=== PATIENT | female | born 1940 | race Caucasian/White ===

== ENCOUNTER 2019-03-22 00:05 | Inpatient (IN) | payer MEDICARE, OTHER ==
[2019-03-21 15:56] LABS: INR 1.06
--- NOTE | 2019-03-21 17:55 | HISTORY AND PHYSICAL ---
DATE OF ADMISSION: March 22, 2019 IDENTIFICATION/CHIEF COMPLAINT Margie is a 78-year old woman with a chief complaint of progressive left shoulder pain. HISTORY OF PRESENT ILLNESS Patient has a longstanding history of arthritis which has been refractory to conservative care. Surgery is indicated to relieve symptoms after failure of all nonoperative measures. PAST MEDICAL HISTORY Hypertension, controlled on medication. CURRENT MEDICATIONS 1. Omeprazole 20 mg p.o. q.d. 2. Lisinopril 40 mg p.o. q.d. 3. Hydrochlorothiazide 12.5 mg p.o. q.d. 4. Atorvastatin 10 mg p.o. q.d. 5. Metoprolol 200 mg p.o. q.d. 6. Gabapentin 800 mg p.o. t.i.d. 7. Lyrica 75 mg p.o. q.h.s. 8. Levothyroxine 125 mcg p.o. q.d. 9. Alendronate 20 mg p.o. q.d. PAST SURGICAL HISTORY 1. 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 2. Cholecystectomy. 3. Hysterectomy. 4. Appendectomy. FAMILY HISTORY Noncontributory. SOCIAL HISTORY Negative for tobacco and alcohol. REVIEW OF SYSTEMS Negative. PHYSICAL EXAMINATION GENERAL: Healthy female. HEENT: Normocephalic, atraumatic. NECK: Supple. LUNGS: Clear. HEART: Regular. ABDOMEN: Soft. ORTHOPEDIC EXAM There is tenderness at the anterior and posterior joint line of the left shoulder. She has severe crepitus and catching within a comfortable range. Cuff strength is normal. Radiographs demonstrates end-stage glenohumeral osteoarthritis. MRI demonstrates slightly irregular cuff but with no full thickness tearing and end-stage arthritic changes. ASSESSMENT Left shoulder end-stage glenohumeral osteoarthritis, progressively painful and debilitating, refractory to conservative care. PLAN Proceed with shoulder arthroplasty per patient request, most likely an anatomic total shoulder replacement but possibly reverse based on intraoperative findings. Concomitant long-head biceps tenodesis will be performed in the same setting. Nature of the procedure, risks and benefits and alternatives were reviewed. The risks of the procedure include but are not limited to , major medical or anesthetic complications, infection, neurovascular injury, blood transfusion, stiffness, scarring, fracture, tendon rupture, instability, implant loosening, migration or failure, persistent or recurrent pain, need for additional surgery and other unforeseen. She understands and wishes to proceed. Signed permit placed in the chart. No guarantees given or implied. LISANDRO
[2019-03-22] VITALS (10 sets, daily range): BP systolic 131–152; BP diastolic 72–115
[~2019-03-22] VITALS: Ht 167.6 cm; Wt 88.9 kg
[~2019-03-22 00:05] MED LIST: ALEN70TA43 PO; ATOR10TA24 PO; GABA-549 PO; HYDR-2966 PO; LEVO-3 PO; LISI-374 PO; METO200T12 PO; NAPR220C12 PO; OMEP-125 PO; PREG75CA60 PO; TURM500C4 PO
[2019-03-22] MEDS ORDERED: LIDOCAINE/SOD BICARB 8.4% SYR ID ONE (07:30)
[2019-03-22] MEDS ORDERED: NORMOSOL R SOLN(*) 1000 ML BAG 1,000 ML IV PRN ×2 (07:30→14:55)
[2019-03-22] MEDS ORDERED: ACETAMINOPHEN 500 MG TAB PO ONE (08:00)
[2019-03-22] MEDS ORDERED: PREGABALIN 75 MG CAPSULE PO ONE (08:20)
[2019-03-22] MEDS ORDERED: CELECOXIB 200 MG CAP PO ONE (08:30)
[2019-03-22] MEDS ORDERED: TRANEXAMIC AC 1000 MG/10ML SDV 1,000 MG in DEXTROSE 5% 50 ML BAG 50 ML IV ONE (08:45)
[2019-03-22] MEDS ORDERED: ceFAZolin(*) 2GM/D5W 50ML 50 ML IVPB ONE (08:45)
[2019-03-22] MEDS ORDERED: MIDAZOLAM 2 MG/2 ML VIAL IVP PRN (08:45)
[2019-03-22] MEDS ORDERED: ROPIVACAINE/EPI/CLONIDINE/KET 50 ML SYRINGE INJ ONE (08:45)
[2019-03-22] MEDS ORDERED: THROMBIN TOP SOLN 5000INTLU VL ONE (10:43)
[2019-03-22] MEDS ORDERED: HYDROGEN PEROXID 3% 473 ML BTL TP ONE (10:43)
[2019-03-22] MEDS ORDERED: VANCOMYCIN 1 GM VIAL ONE (10:45)
[2019-03-22] MEDS ORDERED: ROPIVACAINE 0.5% 20 ML VIAL ONE (13:46)
[2019-03-22] MEDS ORDERED: GLYCOPYRROLATE 0.2MG/ML 1 ML INJ ONE (13:46)
[2019-03-22] MEDS ORDERED: ONDANSETRON 4 MG/2 ML VIAL ONE ×2 (13:46→14:18)
[2019-03-22] MEDS ORDERED: PROPOFOL EMUL(*) 10MG/ML 20 ML 20 ML ONE (13:46)
[2019-03-22] MEDS ORDERED: DEXAMETHASONE SOD PHOS 10MG/ML ONE (13:46)
[2019-03-22] MEDS ORDERED: ROCURONIUM BROM 10 MG/ML 10 ML ONE (13:46)
[2019-03-22] MEDS ORDERED: PHENYLEPHRINE 10 MG/1 ML VIAL ONE (13:46)
[2019-03-22] MEDS ORDERED: PROMETHAZINE 25 MG/ML 1 ML AMP ONE (14:37)
--- NOTE | 2019-03-22 14:54 | RADIOLOGY IMAGING REPORT ---
FACILITY: [facility] [place] PATIENT NAME: Margie Muller : 1940 MR: [id number] V: [id number] EXAM DATE: ORDERING PHYSICIAN: LISA BRUCE TECHNOLOGIST: Location: [facility] [place] Patient: Margie Muller : 1940 Visit/Account:[id number] Date of Sevice: 03/22/2019 3 views left shoulder Indication: Status post left total shoulder arthroplasty. Comparison: February 16, 2019. Findings: Postoperative changes noted from left shoulder arthroplasty. Shoulder appears to be an articulating alignment. No visualized hardware complication. There are overlying skin vickie. Mild subcutaneou s emphysema. At least mild/moderate degenerative changes within the left acromioclavicular joint. IMPRESSION: Unremarkable postoperative appearance of left shoulder arthroplasty. Report Dictated By: Yeison Yancey MD at 03/22/2019 2:43 PM Report E-Signed By: Yeison Yancey MD at 03/22/2019 2:50 PM WSN:BRYSON
[2019-03-22] MEDS ORDERED: diphenhydrAMINE 25 MG CAP PO PRN (14:55)
[2019-03-22] MEDS ORDERED: ZOLPIDEM TARTRATE 5 MG TAB PO PRN (14:55)
[2019-03-22] MEDS ORDERED: MAGNESIUM HYDROXIDE* 30ML UDCP PO PRN (14:55)
[2019-03-22] MEDS ORDERED: PROMETHAZINE 25 MG/ML 1 ML AMP IVP PRN (14:55)
[2019-03-22] MEDS ORDERED: BENZOCAINE/MENTHOL 1 EACH LOZG PO PRN (14:55)
[2019-03-22] MEDS ORDERED: APAP/HYDROCODONE 325/7.5 TAB PO PRN (14:55)
[2019-03-22] MEDS ORDERED: ACETAMINOPHEN 325 MG TAB PO PRN (14:55)
[2019-03-22] MEDS ORDERED: DIAZEPAM 5 MG TAB PO PRN (14:55)
[2019-03-22] MEDS ORDERED: BISACODYL 10 MG SUPP PR PRN (14:55)
[2019-03-22] MEDS ORDERED: FLUSH 10 ML SYR IVP PRN (14:55)
[2019-03-22] MEDS ORDERED: diphenhydrAMINE 50 MG/ML VIAL IVP PRN (14:55)
--- NOTE | 2019-03-22 16:07 | OPERATIVE REPORT 1 ---
EVENT DATE: March 22, 2019 SURGEON: Bar Feldman MD ANESTHESIOLOGIST: Ernst Cai MD ANESTHESIA: General plus scalene. COMBINATION WINDOW INSTALLER: LIZZETTE Pinto PREOPERATIVE DIAGNOSES 1. Left shoulder end-stage glenohumeral osteoarthritis. 2. Long head biceps disease. POSTOPERATIVE DIAGNOSES 1. Left shoulder end-stage glenohumeral osteoarthritis. 2. Long head biceps disease. PROCEDURES PERFORMED 1. Left total shoulder arthroplasty. 2. Tenodesis of the long head of the biceps. ESTIMATED BLOOD LOSS 200 mL DRAINS None. SPECIMENS None. COMPLICATIONS None apparent. IMPLANTS USED [email or web address] system with a size 10 stem, 10 proximal body, a 44 x 15 standard concentric humeral head, and a 44 mm [place] Peg Glenoid. INDICATIONS Margie is a 78-year-old woman with intractable pain related to end-stage shoulder arthritis. Surgery is indicated to relieve symptoms after failure of nonoperative measures. DESCRIPTION OF PROCEDURE Patient is taken to the operating room and placed supine on the operating table. Scalene block is administered by the anesthesiologist. General anesthesia is induced. Antibiotics are administered IV. Patient is positioned in the beach chair position with the neck secured in a neutral position. All bony prominences and superficial nerves are well padded. Left shoulder girdle and upper extremity are prepped and draped free in the usual sterile fashion for shoulder arthroplasty. A curvilinear incision is made over the deltopectoral interval, carried down through the skin. Dissection is carried down to the cephalic vein, which is taken laterally with the deltoid. Deltopectoral interval is developed bluntly. The clavipectoral fascia is released along the lateral aspect of the conjoined tendon. About a centimeter of the upper pectoralis tendon is released, leaving a small cuff of tissue. The underlying biceps groove is identified. This is markedly dilated with synovial fluid. This is opened, and the biceps is identified and tenodesed anatomically with two [id number] #2 Ethibond to the stump of the pectoralis major tendon. This is then clipped proximally and traced up into the joint to the rotator interval and excised. Tenosynovial debris in the groove is removed. Next, the anterior humeral circumflex vessels are identified and ligated. Next, an incision is made through the subscapularis and the capsule about 1.5 cm medial to the biceps groove. The subscapularis is tagged for later reattachment with #2 Ethibond sutures. The capsule is then released off the inferior humeral head subperiosteally as the arm is progressively extended and externally rotated. Prior to this maneuver, the axillary neurovascular bundle is identified with a gloved finger, and a blunt Hohmann is used to protect the neurovascular bundle. Osteophytes around the rim of the humeral head are resected with a large rongeur. A Darrach retractor is placed to protect the glenoid, and a Crego retractor is used to protect the rotator cuff. Neck cut is marked starting at the superolateral aspect of the humeral head of the junction with the cuff at a 135-degree angle, and an oscillating saw was used to create the osteotomy aiming for the bare area, reproducing the patient's anatomic version. The head is extracted and taken to the back table and saved for later bone grafting. Next, the humerus is levered posteriorly with a posterior retractor. It is placed on the back lip of the glenoid, and the glenoid is exposed en face. A 360-degree subscapularis release is performed, taking care not to damage the axillary neurovascular bundle. Anterior retractor is placed on the glenoid neck anteriorly. The labrum is excised circumferentially. The cuff is found to be in good condition posterior superior with no need for reverse arthroplasty. We will proceed with anatomic shoulder replacement. After direct exposure of the glenoid, sizing disk reveals that a 44 is optimal. The center point is marked. A guide pin is then placed perpendicular to the surface, perhaps trending slightly toward slightly correcting a bit of retroversion, but neutral in the superior inferior direction. This is driven to and through the cortex of the center line of the glenoid. Reamer is introduced next, and reaming is performed to achieve concentric backing for the 44. Reamings are saved for later grafting. The [place] Peg Glenoid central hole is then drilled, followed by the peripheral holes. Trial has nice gttj-am-jflm fit. Surfaces are copiously lavaged. Meticulous hemostasis is assured. Thrombin and Gelfoam are packed in the peripheral holes. A mix of DePuy fast-acting cement is made, and it is pressurized into the peripheral holes. The [place] Peg Glenoid is grafted along its flute with the bone reamings. This is then press-fit into location and held until it is satisfactorily hardened. The humerus then extended and externally rotated, and a starting awl started at the most superior and lateral aspect of the osteotomy. It was used to find the canal. Tapered reaming is performed in 2 mm increments up to 10 where a nice endosteal contact is obtained. The Brosteotome is then introduced using the bar to align the version with the cut to reproduce the patient's anatomic version. The trial sits nicely. Trial reduction is performed off the trial stem with various head and neck combinations, and ideal soft tissue tension is achievable. The 44 x 15 seems ideal with 50% posterior luxation of the head to the rim with good springback. Scarecrow test has 75 degrees with the arm abducted at 90. The subscapularis can be reapproximated out to 60 degrees of external rotation, and one-third inferior luxation is notable pulling axial traction distally on the glenoid component. The trial components are then removed. Pain cocktail is infiltrated throughout the wound. The wound is copiously lavaged. The actual humeral stem is then press-fit into place using calcar grafting technique to enhance bone density around the medial aspect of the stem. Solid fixation is achieved. The Sheikh taper is lavaged and dried, and the actual head is impacted into position. Joint is reduced. Again after confirming satisfactory condition of the axillary neurovascular bundle, the subscapularis is reapproximated anatomically with the previously placed sutures with a free needle as well as additional jabtcz-ja-whqbi #2 Ethibond suture. The rotator interval is loosely closed at the lateral aspect using qrskwt-vy-wviro #2 Ethibond suture with the arm held in external rotation. Final stability and range of motion are assessed. Meticulous hemostasis is assured. Wound is copiously lavaged. Remainder of the pain cocktail is infiltrated throughout. The deltopectoral interval folds back together. Derm is closed with 3-0 Vicryl, skin with surgical vickie. Xeroform is applied for a dry, sterile dressing and an UltraSling. Patient is awakened from anesthesia and taken to the recovery room in stable condition having tolerated the procedure well. PLAN Plan is for standard TSA rehab protocol. [facility]
--- NOTE | 2019-03-22 16:12 | Hospitalist Progress Note ---
Subjective Progress Notes Subjective Patient seen post-op. Reviewed PMHx (HTN, hypothyroidism, GERD, hyperlipidemia) and medications. At present she reports doing fairly well. She denies any CP/SOB/nausea. Physical Exam Vital Signs Date Time Temp Pulse Resp B/P (MAP) Pulse Ox O2 Delivery O2 Flow Rate FiO2 03/22/19 15:30 97.1 63 12 143/81 (101) 97 Nasal Cannula 2.0 General Appearance: Alert, Awake Cardiovascular: Regular Rate and Rhythm Respiratory: Clear to Auscultation (anetriorly) Extremities: Other (LUE in immobilizer/dressed) Assessment and Plan Problems: (1) HTN (hypertension) Status: Chronic Assessment & Plan: Will monitor BPs and resume her lisinopril, metoprolol, HCTZ with parameters. (2) Hypothyroidism Status: Chronic Assessment & Plan: Continue replacement with L-thyroxine 125mcg daily. (3) Hyperlipidemia Status: Chronic Assessment & Plan: She has been managed with atorvastatin 10mg daily. (4) GERD (gastroesophageal reflux disease) Status: Chronic Assessment & Plan: She has been managed with omeprazole. Will continue PPI therapy (Protonix while here). JACKLYN ST MD March 22, 2019 16:12
[2019-03-22] MEDS: IBUPROFEN 800 MG TAB PO SCH (17:19)
[2019-03-22] MEDS ORDERED: NS(*) 0.9% 250 ML BAG 250 ML ONE (19:48)
[2019-03-22] MEDS: ceFAZolin(*) 1 GM VIAL 1 GM in NS(*) 0.9% 100 ML MINI-BAG 100 ML IVPB SCH (20:00)
[2019-03-22] MEDS: PREGABALIN 75 MG CAPSULE PO SCH (20:01)
[2019-03-22] MEDS: ATORVASTATIN 10 MG TAB PO SCH (20:01)
[2019-03-22] MEDS: METOPROLOL SUCC XL 50 MG TABCR 50 MG TAB.ER.24H PO SCH (20:01)
[2019-03-22] MEDS: GABAPENTIN 300 MG CAP PO SCH (20:02)
[2019-03-23] MEDS: IBUPROFEN 800 MG TAB PO SCH ×2 (01:00→09:43)
[2019-03-23] MEDS: ceFAZolin(*) 1 GM VIAL 1 GM in NS(*) 0.9% 100 ML MINI-BAG 100 ML IVPB SCH ×2 (03:31→09:43)
[2019-03-23] MEDS: LEVOTHYROXINE SOD 0.125 MG TAB PO SCH (05:27)
[2019-03-23 08:02] VITALS: BP 137/70
[2019-03-23] MEDS ORDERED: HYDR-654 PO (08:18)
[2019-03-23] MEDS: HYDROCHLOROTHIAZIDE 25 MG TAB PO SCH (09:00)
[2019-03-23] MEDS: LISINOPRIL 20 MG TAB PO SCH (09:00)
[2019-03-23] MEDS: ASPIRIN 325 MG TAB PO SCH (09:43)
[2019-03-23] MEDS: PANTOPRAZOLE SOD 40 MG TABEC PO SCH (09:43)
--- NOTE | 2019-03-23 10:23 | Hospitalist Progress Note ---
Subjective Progress Notes Subjective She was admitted s/p shoulder replacement. She has no complaints this morning. She would like to go home today. Patient Complains of: Cardiovascular: No: Chest Pain Respiratory: No: Shortness of Breath Physical Exam Vital Signs Date Time Temp Pulse Resp B/P (MAP) Pulse Ox O2 Delivery O2 Flow Rate FiO2 03/23/19 08:02 98.3 72 137/70 (92) 98 03/22/19 20:00 Nasal Cannula 2.0 03/22/19 15:30 12 Intake and Output 03/23/19 01:00 Intake Total 3086 ml Balance 3086 ml Intake Oral 586 ml IV Total 2350 ml Other 150 ml # Voids 3 General Appearance: Alert, Awake, No Acute Distress, Afebrile Neuro: No Gross deficits Cardiovascular: Regular Rate and Rhythm Respiratory: No Respiratory Distress, Clear to Auscultation GI: Soft and Non-Tender Psych: Alert & Oriented X3, Appropriate Mood & Affect Assessment and Plan Problems: (1) HTN (hypertension) Status: Chronic Assessment & Plan: Will monitor BPs and resume her lisinopril, metoprolol, HCTZ with parameters. (2) Hypothyroidism Status: Chronic Assessment & Plan: Continue replacement with L-thyroxine 125mcg daily. (3) Hyperlipidemia Status: Chronic Assessment & Plan: She has been managed with atorvastatin 10mg daily. (4) GERD (gastroesophageal reflux disease) Status: Chronic Assessment & Plan: She has been managed with omeprazole. Will continue PPI therapy (Protonix while here). Exam Sepsis Risk: No Definite Risk Problem Qualifiers (1) HTN (hypertension): Hypertension type: essential hypertension Qualified Codes: I10 - Essential (primary) hypertension МАРИНА FLORES March 23, 2019 10:23
[2019-03-23 11:38] VITALS: BP 121/70
--- NOTE | 2019-03-23 14:09 | NUR ---
Occupational Therapy Impression Pt alert and agreeable to OT tx. Reviewed precautions, wear/fit of sling, ADLs, and ther ex per Dr. Feldman TSA protocol. Pt has a lift recliner and raised toilet seat at home. Max A sit<>stand from chair. CGA ambulation with use of one UE on 4WW in room. Mod A sit<>stand from toilet. Min A sit<>stand from bed. Min A UB/LB dressing. Pt demonstrating decreased (I) and safety for functional mobility at this time. Discharge orders placed by Dr. Feldman, recommend hold discharge at this time for pt to improve (I) with transfers. Pt resistant to recommendation to postpone discharge this date, will follow. Occupational Therapy Goals Patient's Goal
--- NOTE | 2019-03-23 15:47 | NUR ---
Occupational Therapy Impression Pt alert and agreeable to 2nd OT tx. Reviewed precautions and ther ex per Dr. Feldman TSA protocol. Max A sit<>stand from chair with multiple attempts to accomplish. Min A sit<>stand from bedx2. Pt reports chairs are built up with blankets at home. CGA ambulation with use of right UE on 4WW x30ft. SpO2 WNL on room air. Pt agreeable to stay for an additional night for assist with transfer training. Son present and requesting information for where to obtain a gait belt (information provided). Continue POC. Occupational Therapy Goals Patient's Goal
[2019-03-23 15:53] VITALS: BP 134/66
[2019-03-23 19:08] VITALS: BP 122/74
[2019-03-23] MEDS: METOPROLOL SUCC XL 50 MG TABCR 50 MG TAB.ER.24H PO SCH ×2 (21:25→21:28)
[2019-03-23] MEDS: GABAPENTIN 300 MG CAP PO SCH (21:25)
[2019-03-23] MEDS: PREGABALIN 75 MG CAPSULE PO SCH (21:26)
[2019-03-23] MEDS: ATORVASTATIN 10 MG TAB PO SCH (21:26)
[2019-03-24] MEDS: IBUPROFEN 800 MG TAB PO SCH ×2 (00:36→09:05)
[2019-03-24 02:37] VITALS: BP 155/81
[2019-03-24] MEDS: LEVOTHYROXINE SOD 0.125 MG TAB PO SCH (06:01)
[2019-03-24 06:57] VITALS: BP 148/68
[2019-03-24] MEDS: ASPIRIN 325 MG TAB PO SCH (09:05)
[2019-03-24] MEDS: HYDROCHLOROTHIAZIDE 25 MG TAB PO SCH ×2 (09:05→09:09)
[2019-03-24] MEDS: PANTOPRAZOLE SOD 40 MG TABEC PO SCH (09:05)
[2019-03-24] MEDS: LISINOPRIL 20 MG TAB PO SCH (09:05)
--- NOTE | 2019-03-24 09:08 | NUR ---
Occupational Therapy Impression Pt alert and agreeable to OT tx. Reviewed precautions and ther ex per Dr. Gaston HURD protocol. Pt dressed, declined further ADLs at this time. Pt desires to discharge home at current level of function with built up seated surfaces. Pt and family report no further questions/concerns for OT at this time. Plan to discharge home with HH and assist from family/friends for ADLs/IADLs. Occupational Therapy Goals Patient's Goal
--- NOTE | 2019-03-24 12:07 | Hospitalist Progress Note ---
Subjective Progress Notes Subjective She has no complaints this morning. She would like to go home today. Patient Complains of: Cardiovascular: No: Chest Pain Respiratory: No: Shortness of Breath Physical Exam Vital Signs Date Time Temp Pulse Resp B/P (MAP) Pulse Ox O2 Delivery O2 Flow Rate FiO2 03/24/19 07:31 89 03/24/19 07:31 Room Air 03/24/19 06:57 97.9 71 148/68 (94) 03/24/19 02:37 20 03/22/19 20:00 2.0 Intake and Output 03/24/19 07:00 Intake Total 480 ml Balance 480 ml Intake Oral 480 ml # Voids 9 General Appearance: Alert, Awake, No Acute Distress, Afebrile Neuro: No Gross deficits Cardiovascular: Regular Rate and Rhythm Respiratory: No Respiratory Distress, Clear to Auscultation GI: Soft and Non-Tender Psych: Alert & Oriented X3, Appropriate Mood & Affect Assessment and Plan Problems: (1) HTN (hypertension) Status: Chronic Assessment & Plan: Will monitor BPs and resume her lisinopril, metoprolol, HCTZ with parameters. (2) Hypothyroidism Status: Chronic Assessment & Plan: Continue replacement with L-thyroxine 125mcg daily. (3) Hyperlipidemia Status: Chronic Assessment & Plan: She has been managed with atorvastatin 10mg daily. (4) GERD (gastroesophageal reflux disease) Status: Chronic Assessment & Plan: She has been managed with omeprazole. Will continue PPI therapy (Protonix while here). Exam Sepsis Risk: No Definite Risk Problem Qualifiers (1) HTN (hypertension): Hypertension type: essential hypertension Qualified Codes: I10 - Essential (primary) hypertension МАРИНА FLORESP March 24, 2019 12:07
== END 2019-03-24 10:50 | disposition home or self-care (01) | DRG 483 ==
LOC: OR 00:05 → MED 15:25
PROVIDERS: ADMIT Orthopaedic Surgery; ATTEND Orthopaedic Surgery
PROC: 0RRK0JZ Replacement of Left Shoulder Joint with Synthetic Substitute, Open Approach (ICD-10-PCS; principal; 2019-03-22 11:32)
PROC: 0LS40ZZ Reposition Left Upper Arm Tendon, Open Approach (ICD-10-PCS; 2019-03-22 11:32)
DX: M19.012 Primary osteoarthritis, left shoulder (principal); I10 Essential (primary) hypertension; E03.9 Hypothyroidism, unspecified; K21.9 Gastro-esophageal reflux disease without esophagitis; E78.5 Hyperlipidemia, unspecified; Z96.611 Presence of right artificial shoulder joint; Z90.710 Acquired absence of both cervix and uterus; Z90.49 Acquired absence of other specified parts of digestive tract
CPT/HCPCS: 36415; 76942; 85610; 86850; 86900; 86901; 97165; C1713; C1776; J0690; J1100; J2250; J2370; J2405; J2550; J2704; J2795; J3370; J3490; J7050; J7060